=== PATIENT | female | born 1935 | race Caucasian/White ===

== ENCOUNTER 2019-05-02 18:07 | Emergency (ER) | payer MEDICARE, SELFPAY ==
--- NOTE | ~2019-05-02 | CT_ITS ---
EXAMINATION: CT chest abdomen pelvis w con EXAM DATE: 05/02/2019 20:33 INDICATION: Shortness of breath. Low abdominal pain. TECHNIQUE: Spiral CT of the chest, abdomen and pelvis was performed following intravenous injection o f 100 mL Omnipaque 350. Axial, coronal and sagittal images were reviewed. Coronal maximum intensity pixel images of chest reviewed. The dose-length product (DLP) for this examination was 570.37 mGy-c m. The exposure was tailored according to patient size (auto mA exposure control), and iterative rec onstruction (ASIR) was used as additional dose reduction technique. There is no prior study for desi costello. FINDINGS: CHEST: Interlobular septal thickening and groundglass opacities at the lung bases, probably mild pul monary edema. There is left basilar atelectasis. Small bilateral pleural effusions. Tracheobronchia l tree is patent. There is no mediastinal, hilar or axillary lymphadenopathy. There is no pneumot horax. There is cardiomegaly and pulmonary vascular congestion. There are dense mitral annular calc ifications. There are likely coronary arterial stent or stents. Correlate with prior cardiac history . No central pulmonary emboli. ABDOMEN PELVIS: Small to moderate amount of ascites. There is complex solid and 9 x 11 cm solid and c ystic mass, located in the right lower quadrant. This likely right ovarian malignancy, cecal or appen dical malignancy. Multiseptated abscess unlikely given the extent of the soft tissue component. There is a smaller solid mass in the left side of the pelvis measuring 3 cm in diameter, could be metastat ic disease, left ovary or lymphadenopathy. Possible omental carcinomatosis. The liver, spleen, adrenal glands and pancreas are unremarkable. Gallbladder is unremarkable. No bi liary obstruction. There is no hydronephrosis. There is significant diffuse thickening of the right sided renal ureteral urothelium proximal to the pelvic inlet and in the renal pelvis, correlate with urinalysis. Patient has had hysterectomy. The bladder is unremarkable. There is mild scattered a rteriosclerotic disease. Appendix is not identified. The stomach and small bowel are unremarkable. There is expected amount of colonic stool. No free intraperitoneal gas. There are no osteoblastic or osteolytic lesions id entified. IMPRESSION: 1. Findings consistent with mild CHF exacerbation. 2. Right lower quadrant 10 cm mass likely malignancy from right ovary, cecum or appendix. 3. Solid left pelvic 3 cm mass. 4. Small to moderate ascites and possible peritoneal carcinomatosis. 5. Right renal pelvic, proximal ureteral wall thickening; correlate with urinalysis. Reviewed, dictated and finalized at location A. [facility] IMPRESSION: 1. Findings consistent with mild CHF exacerbation. 2. Right lower quadrant 10 cm mass likely malignancy from right ovary, cecum o r appendix. 3. Solid left pelvic 3 cm mass. 4. Small to moderate ascites and possible peritoneal carcinomatosis. 5. Right renal pelvic, proximal ureteral wall thickening; correlate with urina lysis.
[2019-05-02 18:24] VITALS: BP 172/61; PULSE 90; RESP 18; TEMP 37.6; O2SAT 96
[2019-05-02 19:21] LABS: Basophils Percent Auto 0.3 % (0.2-1.2); Eosinophils Absolute Auto 0.1 K/mm3 (0-0.3); Eosinophils Percent Auto 1.4 % (0-4.4); Immature Granulocyte Absolute 0.02 K/mm3 (0.00-0.031); Immature Granulocyte Percent A 0.2 % (0-0.5); Lymphocytes Absolute Auto 1.37 K/mm3 (0.9-3.2); Lymphocytes Percent Auto 13.7 % (18.3-44.2); Mean Corpuscular Volume 93.9 fl (80-100); Mean Platelet Volume 10.3 fl (7.4-10.4); Monocytes Percent Auto 9.8 % (2.6-8.5); Neutrophils Absolute Auto 7.5 K/mm3 (1.3-6.7); Neutrophils Percent Auto 74.6 % (45.5-73.1); Platelet Count Result 211 k/mm3 (150-375); Red Blood Count 2.13 M/mm3 (4.2-5.4); Red Cell Distribution Width 16.8 % (11.5-14.5)
[2019-05-02 19:25] LABS: Hemoglobin 6.4 g/dL (12.0-15.0)
--- NOTE | 2019-05-02 19:26 | PC.NURSE ---
During assessment the Pt stated discomfort while palpating right side of abd, a hard mass was felt. There was no bowel sounds on right side, left side was hyperactive. Left lung sounds diminished right side was clear. Pt is tachypneic. MD Han. notified of findings.
--- NOTE | 2019-05-02 19:31 | ED.ABDPAIN ---
HPI - Abdominal Pain General Chief Complaint: Abdominal Pain Stated Complaint: abd pain Time Seen by Provider: 05/02/19 19:10 Source: patient, family (Daughter at bedside) and RN notes reviewed Mode of arrival: ambulatory Limitations: no limitations History of Present Illness HPI narrative: Pt is an 83 y/o female presenting to the ED c/o ABD pain. Pt reports she has been experiencing rt sided ABD pain for not very long . Pt states she occasionally develops constipation and took a vegetable laxative this morning. Pt also reports SOB that has alleviated, dry cough, and chronic melena due to taking Iron supplements for a Hx of anemia, but denies N/V or rectal bleeding. Pt notes she is not currently on a blood thinner but is taking a Baby aspirin. Pt states she is not currently in any pain in her ED bed. Pt's daughter at bedside reports the pt stated she was not feeling well last . Per daughter, last Saturday the pt experienced ABD pain, CP, wheezing, and SOB, and states she had an incident where she slipped down the side of her bed. Pt's daughter states the pt calmed down and her Sx's alleviated. Per daughter, the pt was not easily arousable last Saturday. Pt's daughter notes the pt c/o ABD pain and SOB again this morning as well as diaphoresis and had a fever of 100.4 F. Per daughter, the pt has had a BM every day over the past 3 days and has a mass on her rt sided ABD. Pt's daughter reports the pt has Hx's of bilateral ovarian cancer, bilateral oophorectomy, CA, cardiac stent, HTN, and Anxiety. 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 Shira Soliz. Pt's daughter states the pt lives with family and has never been a smoker. Pertinent past history: constipation Onset (ago): unknown Pain Consistency: now resolved Location: RUQ and RLQ Associated symptoms: fever (of 100.4 F (per daughter)), hematemesis, melena (Chronic) and other (SOB; CP (resolved); Dry cough; Wheezing (per daughter); Diaphoresis) Related Data Home Medications Medication Instructions Recorded Confirmed aspirin 81 mg tablet,delayed 81 mg PO DAILY 01/14/19 release atorvastatin 40 mg tablet 40 mg PO DAILY 01/14/19 baclofen 10 mg tablet 10 mg PO BID tablet 01/14/19 biotin 1 mg tablet 1 mg PO TID tablet 01/14/19 carvedilol 25 mg tablet See Rx Instructions PO Q12H 01/14/19 cholecalciferol (vitamin D3) 25 1,000 unit PO DAILY 01/14/19 mcg (1,000 unit) capsule clopidogrel 75 mg tablet 75 mg PO DAILY 01/14/19 hydrochlorothiazide 25 mg tablet 25 mg PO DAILY 01/14/19 lisinopril 40 mg tablet 40 mg PO DAILY 01/14/19 trazodone 100 mg tablet See Rx Instructions PO DAILY 01/14/19 tablet venlafaxine 75 mg tablet 75 mg PO DAILY 01/14/19 Allergies Allergy/AdvReac Type Severity Reaction Status Date / Time No Known Allergies Allergy Verified 01/14/19 11:09 Review of Systems Review of Systems: All systems reviewed & are unremarkable except as noted in HPI and below Constitutional: Constitutional: Reports fever(s) (of 100.4 F) Cardiovascular: Cardiovascular: Reports diaphoresis Respiratory: Respiratory: Reports cough (Dry), Reports dyspnea and Reports wheezing (Per daughter) Gastrointestinal: Gastrointestinal: Reports abdominal pain (Rt sided (resolved)), Reports melena (Chronic), Denies hematochezia, Denies nausea and Denies vomiting [facility] Past Medical History Medical History (Updated 05/02/19 @ 21:18 by Yessi Carreon MD) Adnexal cyst Anxiety disorder, unspecified 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
[2019-05-02 19:32] LABS: Alanine Aminotransferase 15 U/L (4-35); Albumin Level 3.4 g/dL (3.5-5.1); Alkaline Phosphatase 478 U/L (38-126); Aspartate Amino Transferase 91 U/L (14-36); Bilirubin,Total 0.3 mg/dL (0.2-1.3); Blood Urea Nitrogen 17 mg/dL (7-17); Carbon Dioxide 28 mmol/L (22-30); Chloride 104 mmol/L (98-107); Estimated Glomerular Filt Rate > 60; Glucose 120 mg/dL (65-105); Lipase 67 U/L (23-300); Potassium 3.7 mmol/L (3.4-5.0); Sodium 137 mmol/L (137-145)
[2019-05-02 20:06] LABS: Immature Reticulocyte Fraction 20.5 % (3.0-15.9); Reticulocyte Percent 2.02 % (0.7-4.3); Reticulocytes Absolute 0.04 B/L (32.2-175.7)
[2019-05-02 20:27] LABS: Troponin I 0.393 ng/mL (0.000-0.034)
[2019-05-02 21:16] LABS: Folic Acid 12.2 ng/mL (2.76->20)
[2019-05-02 21:37] LABS: Iron 46 ug/dL (37-170); Percent Iron Saturation 14 % (20-50)
== END 2019-05-02 21:26 | disposition home or self-care (01) ==
PROVIDERS: Emergency Medicine; Emergency Provider Emergency Medicine; PCP Family Medicine
DX: C80.0 Disseminated malignant neoplasm, unspecified (principal); Z85.43 Personal history of malignant neoplasm of ovary; I25.2 Old myocardial infarction; Z95.5 Presence of coronary angioplasty implant and graft; F41.9 Anxiety disorder, unspecified; K21.9 Gastro-esophageal reflux disease without esophagitis; E78.5 Hyperlipidemia, unspecified; F32.9 Major depressive disorder, single episode, unspecified; M51.06 Intervertebral disc disorders with myelopathy, lumbar region; M43.10 Spondylolisthesis, site unspecified; I50.9 Heart failure, unspecified; I11.0 Hypertensive heart disease with heart failure; D64.9 Anemia, unspecified; N94.9 Unspecified condition associated with female genital organs and menstrual cycle; R18.8 Other ascites; Z79.82 Long term (current) use of aspirin; R93.41 Abnormal radiologic findings on diagnostic imaging of renal pelvis, ureter, or bladder
CPT/HCPCS: 36415; 71260; 74177; 80053; 82607; 82728; 82746; 83540; 83550; 83690; 84484; 85025; 85046; 86850; 86900; 86901; 86923; 99284; Q9967